=== PATIENT | female | born 1950 | race Two or more races ===

== ENCOUNTER 2022-01-19 07:26 | Outpatient (CLI) | payer OTHER | END 2022-01-19 07:32 | disposition home or self-care (01) | LOC: NUCLEAR 07:26 | PROVIDERS: ATTEND Specialist | DX: I11.9 Hypertensive heart disease without heart failure (principal); I20.9 Angina pectoris, unspecified; I25.9 Chronic ischemic heart disease, unspecified | CPT/HCPCS: 78452; 93017; A9500 ==

== ENCOUNTER 2024-05-15 07:26 | Outpatient (CLI) | payer OTHER | END 2024-05-15 07:28 | disposition home or self-care (01) | LOC: NUCLEAR 07:26 | PROVIDERS: ATTEND Specialist | DX: I20.9 Angina pectoris, unspecified (principal) | CPT/HCPCS: 78452; 93017; A9500 ==